=== PATIENT | female | born 1990 | race Hispanic/Latino ===

== ENCOUNTER 2020-02-29 04:44 | Emergency (ER) | payer OTHER ==
[2020-02-29 05:03] LABS: APPEARANCE,URINE Clear (CLEAR); BILIRUBIN,URINE Negative (NEGATIVE); COLOR,URINE Yellow (YELLOW); GLUCOSE, URINE (UA) Negative (NEGATIVE); KETONES,URINE Negative (NEGATIVE); LEUKOCYTE ESTERASE ,URINE Negative (NEGATIVE); NITRATE,URINE Negative (NEGATIVE); OCCULT BLOOD,URINE Nonhemolyzed Trace (NEGATIVE); PROTEIN,URINE Negative (NEGATIVE); UROBILINOGEN,URINE 0.2 mg/dL (0.2-1.0)
[2020-02-29 05:07] LABS: HCG,QUAL RESULT NEGATIVE (NEGATIVE)
[2020-02-29] MEDS ORDERED: ONDANSETRON 4MG INJ ONE (05:11)
[2020-02-29] MEDS ORDERED: METOCLOPRAMIDE 10 MG/2 ML VIAL ONE (05:11)
[2020-02-29] MEDS ORDERED: PANTOPRAZOLE 40 MG/VIAL ONE (05:11)
[2020-02-29] MEDS ORDERED: FAMOTIDINE 20MG VIAL IV ONE (05:12)
[2020-02-29 05:16] LABS: RBC,URINE 0-1 /HPF (0-1); WBC,URINE 0-1 /HPF (0-1)
[2020-02-29 05:17] LABS: BACTERIA,URINE Rare /HPF (None Seen)
[2020-02-29 05:32] LABS: BASOPHILS % (AUTO) 0.5 % (0.0-5.0); EOSINOPHILS % (AUTO) 2.2 % (0.0-8.0); HEMATOCRIT 41.4 % (36-48); LYMPHOCYTES % (AUTO) 33.1 % (21.0-51.0); MEAN CORPUSCULAR HEMOGLOBIN 29.7 pg (27.0-33.0); MEAN CORPUSCULAR HGB CONC 33.3 g/dL (32.0-36.0); MEAN CORPUSCULAR VOLUME 89.2 fL (79-99); MONOCYTES % (AUTO) 7.8 % (3.0-13.0); NEUTROPHILS % (AUTO) 56.2 % (40.0-77.0); PLATELET COUNT (AUTO) 329 K/uL (130-400); RED BLOOD CELL COUNT(AUTO) 4.64 MIL/uL (4.00-5.50); RED CELL DISTRIBUTION WIDTH 11.8 % (11.0-15.5); WHITE BLOOD COUNT (AUTO) 9.3 K/uL (4.8-10.8)
[2020-02-29 05:49] LABS: CREATININE 0.7 mg/dL (0.5-1.5)
[2020-02-29 05:53] LABS: BILIRUBIN,TOTAL 0.2 mg/dL (0.2-1.0); TOTAL PROTEIN, SERUM 7.6 g/dL (6.0-8.3)
[2020-02-29] MEDS ORDERED: DiphenhydrAMINE HCL 50 MG/ML VIAL ONE (06:09)
[2020-02-29] MEDS ORDERED: KETOROLAC 30MG VIAL (30MG/ML) ONE (06:09)
== END 2020-02-29 06:52 | disposition home or self-care (01) ==
LOC: EDH 04:44
DX: K29.00 Acute gastritis without bleeding (principal); E86.0 Dehydration
CPT/HCPCS: 36415; 76705; 80053; 81001; 81025; 83690; 85025; 96361; 96374; 96375; 99284; C9113; J1200; J1885; J2405; J2765; J3490